=== PATIENT | female | born 1960 | race Caucasian/White ===

== ENCOUNTER → 2016-07-31 | Outpatient (CLI) | payer BC ==
[~2016-07-31] MED LIST: ACID1TAB PO; ALPR1T PO; CARV12.53 PO; DIPH1TAB25 PO; FLUO20CA25 PO; FLUO20CA42 PO; FRSM40T PO; FURO40TA4 PO; HYDR-2890 PO; HYDR25TA4 PO; IBUP200C PO; IRON18TA PO; KCL20TCR PO; LCT30U PO; LEVO500T69 PO; LORA1TAB PO; MILK1CAP2 PO; MODA100T27 PO; MULT-974 PO; NFBIOT1000 PO; NITR-65 PO; ONDA-42 PO; OXYM5TAB PO; PHEN-640 PO; RIFA550T PO; Rifaximin PO; SPIR50TA2 PO; SULF1TAB35 PO; Spironolactone PO; TRAM-42 PO
--- OUTSIDE RECORDS SUMMARY | 2016-07-31 06:43 | XMS REPORT | Continuity of Care Document ---
Author Author [facility] Organization [facility] Address Unknown Phone Unavailable Care Team Providers Care Telegraphic Typewriter Installer Name Role Phone Awais Yost III PCP [phone] Source Comments Some departments are not documenting in the electronic medical record. If you do not see the information that you expected, contact Release of Information in the Health Information Management department at [phone] for further assistance in locating additional records.[facility] Active Allergies and Adverse Reactions Allergen Noted Date Severity Reactions Comments Erythromycin 03/17/2015 High ANAPHYLAXIS Current Medications Prescription Sig. Disp. Refills Start End Date Status Date fluoxetine(+) (SARAFEM) Take 20 mg by mouth Active 20 mg tablet daily. Biotin 2,500 mcg tab Take 5,000 mcg by mouth. Active Milk Thistle 500 mg cap Take 1,000 mg by mouth. Active OXYCODONE HCL/ASPIRIN Take by mouth. Active (PERCODAN PO) furosemide (LASIX) 20 mg Take 1 Tab by mouth 30 Tab 0 11/16/19 Active tablet daily. Please make an [address] Ruano for additional refills. oxymorphone(+) (OPANA) 5 Take 5 mg by mouth daily Active mg tablet varenicline (CHANTIX Take 0.5mg by mouth daily 53 Tab 0 07/06/19 Active STARTING MONTH BOX) 0.5 for 3 days, then increase 17 mg (11)- 1 mg (42) tablet to 0.5mg by mouth twice daily for 4 days, then increase to 1mg by mouth twice daily rifAXIMin (XIFAXAN) 550 Take 1 Tab by mouth twice 60 Tab 5 07/06/19 Active mg tablet daily. 17 spironolactone Take 1 Tab by mouth 90 Tab 1 07/06/19 Active (ALDACTONE) 50 mg tablet daily. 17 carvedilol (COREG) 12.5 Take 1 Tab by mouth at 90 Tab 1 07/06/19 Active mg tablet bedtime daily. 17 LACTULOSE (GENERLAC PO) Take by mouth. 07/06/19 Discontin 17 ued rifaximin (XIFAXAN) 550 Take 1 Tab by mouth twice 60 Tab 5 09/22/19 07/06/19 Discontin mg tab daily. 16 17 ued carvedilol (COREG) 12.5 Take 1 Tab by mouth twice 180 Tab 3 02/09/20 07/06/19 Discontin mg tablet daily with meals. 16 17 ued spironolactone Take 1 Tab by mouth 30 Tab 1 03/01/20 07/06/19 Discontin (ALDACTONE) 50 mg tablet daily. 16 17 ued carvedilol (COREG) 12.5 Take 1 Tab by mouth at 180 Tab 3 07/06/19 Discontin mg tablet bedtime daily. 17 17 ued Active Problems Not on file Most Recent Encounters Date Type Specialty Providers Description 08/24/2016 Hospital Juanjose Ruano MD Esophageal varices Encounter determined by endoscopy (HCC) 07/17/2016 Documentation Transplant Surgery Nohemy Camacho 07/17/2016 Orders Only Transplant Surgery Briana Felder RN Urge incontinence of urine (Primary Dx) 07/06/2016 Office Visit Transplant Surgery Juanjose Ruano MD Alcoholic cirrhosis of liver with ascites (HCC) (Primary Dx); Alcoholic cirrhosis of liver without ascites (HCC) 07/06/2016 Prep for Case Transplant Surgery Briana Felder RN 07/06/2016 Prep for Case Transplant Surgery Briana Felder RN 07/06/2016 Telephone Transplant Surgery Nohemy Camacho Appointment Question 07/05/2016 Telephone Transplant Surgery Nohemy Camacho Patient Reminder Call 07/05/2016 Scan Only Transplant Surgery Juanjose Ruano MD 06/27/2016 Telephone Transplant Surgery Juanjose Ruano MD Other - appointment 06/27/2016 Telephone Hepatology Juanjose Ruano MD Appointment 06/09/2016 Orders Only Transplant Surgery Nika Shields RN Periodic health assessment, general screening, adult (Primary Dx) 06/09/2016 Orders Only Transplant Surgery Tila Islas Alcoholic cirrhosis of liver with ascites (HCC); Periodic health assessment, general screening, adult Social History Tobacco Use Types Packs/Day Years Used Date Current Every Day Smoker Cigarettes 0.5 7 Tobacco Cessation: Ready to Quit: No; Counseling Given: No Comments: Alcohol Use Drinks/Week oz/Week Comments No Last Filed Vital Signs Vital Sign Reading Time Taken Blood Pressure 114/68 07/06/2016 1:14 PM 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 Pulse 60 07/06/2016 1:14 PM 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 Temperature 36.7 C (98 F) 07/06/2016 1:14 PM 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 Respiratory Rate 12 07/06/2016 1:14 PM 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 Height 1.651 m (5' 5") 07/06/2016 1:14 PM 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 Weight 54.885 kg (121 lb) 07/06/2016 1:14 PM 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 Body Mass Index 20.14 07/06/2016 1:14 PM 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 Oxygen Saturation 95% 07/06/2016 1:14 PM 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 Plan of Care Date Type Specialty Providers Description 08/24/2016 Surgery Milo Golden MD ESOPHAGOGASTRODUODENOSCOP [address] [place] [address] [phone] (Fax) 01/04/2017 Appointment Radiology Juanjose Ruano MD [address] [place] [address] [phone] (Fax) 01/04/2017 Appointment Transplant Surgery Juanjose Ruano MD [address] [place] [address] [phone] (Fax) Health Maintenance Due Date Last Done Comments Hepatitis C Screening 1959 Physical (Comprehensive) 1966 Exam Pertussis Vaccine 1970 Tetanus Vaccine 1976 Cervical Cancer Screening 1980 Breast Cancer Screening 1999 Colorectal Cancer 2009 Screening Influenza Vaccine 02/17/2016 Results from Last 3 Months LIPID PROFILE (06/08/2016 10:55 AM) Component Value Range Cholesterol 135 130-200 mg/dL HDL 64.0 30.0-90.0 mg/dl Triglycerides 46 35-200 LDL 62 60-130 mg/dL Cholesterol/HDL Ratio 2.1 0.0-4.4 Specimen Blood Narrative Outside Lab Verified by Tila Islas on 06/09/2016. ALPHA FETO PROTEIN (AFP) (06/08/2016 10:55 AM) Component Value Range Alpha Feto Protein 2.3 0.0-8.7 Specimen Blood Narrative Outside Lab Verified by Tila Islas on 06/09/2016. PROTIME INR (PT) (06/08/2016 10:55 AM) Component Value Range Protime 15.9 (H) 11.3-14.1 INR 1.3 (H) 0.9-1.1 Specimen Blood Narrative Outside Lab Verified by Tila Islas on 06/09/2016. COMPREHENSIVE METABOLIC PANEL (06/08/2016 10:55 AM) Component Value Range Sodium 138 132-145 mEq/L Potassium 4.0 3.5-5.5 mEq/L Chloride 106 95-110 mEq/L CO2 26.0 24.0-34.0 Anion Gap 10 6-14 Glucose 110 60-125 mg/dL Creatinine 0.7 0.6-1.5 mg/dL eGFR Non 95 >59 ml/min/1.73m2 Blood Urea Nitrogen 12 5-25 mg/dL Calcium 9.6 8.5-10.8 Alk Phosphatase 99 30-115 U/L AST (SGOT) 28 0-40 U/L ALT (SGPT) 19 0-50 U/L Total Bilirubin 1.1 0.1-1.4 mg/dL Albumin 4.3 3.5-5.5 g/dL Total Protein 7.6 6.0-8.0 g/dL Specimen Blood Narrative Outside Lab Verified by Tila Islas on 06/09/2016. CBC AND DIFF (06/08/2016 10:55 AM) Component Value Range White Blood Cells 4.67 (L) 5.00-10.00 RBC 4.37 3.60-5.00 M/ul Hemoglobin 14.0 13.0-15.0 Hematocrit 41.8 36.0-46.0 % MCV 95.7 80.0-97.0 MCH 32.0 (H) 27.0-31.0 pg MCHC 33.5 32.0-36.0 pg RDW 14.5 11.6-14.8 % Platelet Count 109 (L) 150-400 Neutrophils 58.4 37.0-80.0 % Lymphocytes 21.0 10.0-50.0 % Monocytes 16.5 (H) 0.0-12.0 Eosinophil 3.2 0.0-7.0 % Basophil 0.9 0.0-2.5 Absolute Neutrophil Count 2.79 2.00-6.90 Absolute Lymph Count 0.98 0.60-3.40 K/ul Absolute Monocyte Count 0.8 0.0-0.9 ul Absolute Eosinophil Count 0.2 0.0-0.7 Absolute Basophil Count 0.0 0.0-0.2 Specimen Blood Narrative Outside Lab Verified by Tila Islas on 06/09/2016.
--- NOTE | 2016-07-31 11:51 | Diagnostic Imaging Report ---
Ultrasound of the liver. INDICATION: Liver cirrhosis. FINDINGS: The liver is hyperechoic which could be related to fatty infiltration or hepatitis. No focal mass identified. The gallbladder demonstrates numerous tiny echogenic material seen within the gallbladder. There is very minimal shadowing gas seen. These were seen to be mobile during the exam. This could be related to sludge or non-shadowing stones. The gallbladder wall is normal in thickness. No pericholecystic fluid. Sonographic Conway sign is reportedly negative. The CBD is mildly dilated at 7 mm in caliber. No intrahepatic biliary dilatation seen. The visualized portions of the pancreas appear unremarkable. The right kidney is 11.5 cm in length with no hydronephrosis or focal lesion. No ascites or fluid collection is seen. Color Doppler demonstrates hepatopetal flow in the portal vein. IMPRESSION: 1. The gallbladder demonstrates numerous tiny nonshadowing stones or sludge. 2. Mildly dilated common bile duct. Dictated by: Dictated on workstation # [id number]
== END ==
LOC: RAD 06:40
PROVIDERS: ATTEND Internal Medicine
DX: K74.60 Unspecified cirrhosis of liver (principal)
CPT/HCPCS: 76705

== ENCOUNTER → 2017-01-11 | Outpatient (CLI) | payer BC ==
[~2017-01-11] VITALS: Ht 157.5 cm; Wt 49.9 kg
[~2017-01-11] MED LIST changes: +COSYNTROPIN 0.25 MG/ML (CORTROSYN) VIAL IV ONE; +COSYNTROPIN 0.25 MG/ML (CORTROSYN) VIAL ONE
[2017-01-11 09:41] VITALS: BP 107/63
== END ==
LOC: SDC 01-10 13:53
PROVIDERS: ATTEND Internal Medicine
DX: E27.8 Other specified disorders of adrenal gland (principal)
CPT/HCPCS: 36415; 82533; 96372

== ENCOUNTER → 2017-03-08 | Outpatient (CLI) | payer BC ==
[~2017-03-08] MED LIST changes: -COSYNTROPIN 0.25 MG/ML (CORTROSYN) VIAL IV ONE; -COSYNTROPIN 0.25 MG/ML (CORTROSYN) VIAL ONE
[2017-03-08 11:24] LABS: BLOOD UREA NITROGEN 13 MG/DL (7-18); BUN/CREATININE RATIO 19; CREATININE SERUM 0.69 MG/DL (0.60-1.30); GFR ESTIMATED > 60
== END ==
LOC: RAD 10:28
PROVIDERS: ATTEND Internal Medicine
DX: K70.31 Alcoholic cirrhosis of liver with ascites (principal)
CPT/HCPCS: 36415; 82565; 84520

== ENCOUNTER → 2017-03-12 | Outpatient (CLI) | payer BC ==
[~2017-03-12] MED LIST changes: +GADOXETATE 2.5 MMOL/10 ML (EOVIST) IV ONE
--- NOTE | 2017-03-12 10:57 | Diagnostic Imaging Report ---
PROCEDURE: MR imaging abdomen with and without contrast. TECHNIQUE: Multiplanar, multisequence MR imaging of the abdomen was performed with and without contrast. INDICATION: Liver cirrhosis. 6 mL of Eovist is administered intravenously. FINDINGS: The liver contour is nodular compatible with cirrhosis. There is no ascites. The portal vein is patent. There is heterogeneous region in the parenchyma of the right hepatic lobe with heterogenous enhancement on the hepatocellular phase of contrast at 20 minutes. This is not associated with significant heterogeneity or a defined mass when evaluated on earlier phase postcontrast images. Heterogeneity is seen on T1 and T2-weighted images. This could be related to the cirrhotic changes with no definitive underlying mass. An infiltrative type mass is not entirely ruled out. The spleen is enlarged measuring 13.4 cm in AP dimension, 5.5 cm transversely and 13.2 cm craniocaudally. No significant dilatation of the biliary tree. The pancreas, and the adrenal glands appear unremarkable. The kidneys demonstrate no hydronephrosis. The abdominal aorta is normal in caliber. There are prominent gastric varices projecting into the gastric fundus seen. IMPRESSION: 1. There is heterogeneity in the right hepatic lobe which may relate to cirrhosis with no discrete mass. An infiltrative underlying neoplasm is not entirely ruled out. Correlate with AFP levels, and with followup CT scan or MRI with liver mass protocol in 3 months. 2. Manifestations of liver cirrhosis, splenomegaly, and prominent gastric varices are seen. No ascites. Dictated by: Dictated on workstation # [id number]
== END ==
LOC: RAD 08:19
PROVIDERS: ATTEND Internal Medicine
DX: K70.30 Alcoholic cirrhosis of liver without ascites (principal)
CPT/HCPCS: 74183

== ENCOUNTER 2017-05-18 06:30 | Emergency (ER) | payer BC ==
[~2017-05-18] VITALS: Ht 157.5 cm; Wt 53.5 kg
[~2017-05-18 06:30] MED LIST changes: -GADOXETATE 2.5 MMOL/10 ML (EOVIST) IV ONE
[2017-05-18] MEDS ORDERED: OXYM10TA (06:55)
[2017-05-18] MEDS ORDERED: FAMC500T17 (06:55)
--- NOTE | 2017-05-18 07:13 | ED Integumentary General ---
General Chief Complaint: Skin/Wound Problems Stated Complaint: SHINGLES Nursing Triage Note: PATIENT STATES THAT SHE WAS DIAGNOSED WITH SHINGLES ON 05/16/17. SINCE THEN THE PAIN HAS GOTTEN WORSE. Source: patient Exam Limitations: no limitations History of Present Illness Time seen by provider: 06:50 Initial Comments Here with report of pain from shingles outbreak on her left hip that goes from her spine around to the midline anteriorly. She is on antiviral medication for this. The pain was getting a little worse so she use capsaicin over the top and this caused more burning. This is settled down now and actually she is feeling a little better but was very concerned about infection. She does have weeping blisters. She is covering this with the Tylenol. She has taken some Tylenol for this and this has helped some. She does have significant liver disease although this has apparently improved of recent. Timing/Duration: getting worse Severity: moderate Location: torso Associated Symptoms: blisters, change in skin texture, edema, rash Allergies and Home Medications Allergies Coded Allergies: Penicillins (Verified Allergy, Unknown, HAS RECEIVED ROCEPHIN IN THE PAST , 06/03/15) erythromycin base (Unverified Allergy, Unknown, 06/03/15) Home Medications Biotin 1,000 Mcg Tablet, 1,000 MCG PO DAILY, (Reported) Carvedilol 12.5 Mg Tablet, 12.5 MG PO BID, (Reported) Diphenoxylate HCl/Atropine 1 Each Tablet, 1 EA PO QID PRN for DIARRHEA for 6 Days Prescribed by: ARIADNA MCMILLAN on 06/06/15 1051 Famciclovir 500 Mg Tablet, (Reported) Fluoxetine HCl 20 Mg Capsule, 20 MG PO DAILY, (Reported) Furosemide 40 Mg Tablet, 20 MG PO DAILY, (Reported) TAKES 1/2 (40MG) TABLET L. Acidophilus/Bulgaricus 1 Each Tablet, 1 TAB.CHEW PO AC for 10 Days Prescribed by: ARIADNA MCMILLAN on 06/06/15 1051 Milk Thistle Seed Extract 140 Mg Capsule, 140 MG PO BID, (Reported) Modafinil 100 Mg Tablet, 100 MG PO BID, (Reported) Multivitamin 1 Each Tablet, 1 TAB PO DAILY, (Reported) Nitrofurantoin Monohyd/M-Cryst 100 Mg Capsule, 100 MG PO BID, #20 Prescribed by: ANN THORNTON on 7/15/16 2339 Oxymorphone HCl 5 Mg Tab.er.12h, 5 MG PO BID PRN for PAIN, (Reported) Oxymorphone HCl 10 Mg Tablet, (Reported) Phenazopyridine HCl 200 Mg Tablet, 1 TAB PO TID, #15 Prescribed by: ANN THORNTON on 12/31/15 2339 Rifaximin 550 Mg Tablet, 1,100 MG PO DAILY, (Reported) TAKES 2 (550MG) TABLETS Spironolactone 50 Mg Tablet, 25 MG PO DAILY, (Reported) TAKES 1/2 (50MG) TABLET Sulfamethoxazole/Trimethoprim 1 Each Tablet, 1 EA PO BID WITH MEALS for 10 Days Prescribed by: ARIADNA MCMILLAN on 06/06/15 1051 Constitutional: see HPI, No chills, No fever Respiratory: no symptoms reported Cardiovascular: no symptoms reported Skin: see HPI, change in color, lesions, rash Psychiatric/Neurological: No Symptoms Reported Past Tntxnoa-Hebosv-Iukuyl Hx Patient Social History Alcohol Use: Past History Recreational Drug Use: No Smoking Status: Current Everyday Smoker Type Used: Cigarettes Recent Foreign Travel: No Contact w/Someone Who Travel: No Recent Infectious Disease Expo: Yes (PATIENT HAS BEEN DIAGNOSED WITH SHINGLES) Recent Hopitalizations: No Physical Abuse: No Sexual Abuse: No Mistreated: No Fear: No Immunizations Up To Date Tetanus Booster (TDap): Unknown PED Vaccines UTD: No Date of Pneumonia Vaccine: Aug 03, 2014 Date of Influenza Vaccine: Aug 03, 2014 Seasonal Allergies Seasonal Allergies: No Surgeries History of Surgeries: Yes (D&C, WISDOM TEETH, COLONOSCOPY; PARACENTESIS X 2) Respiratory History of Respiratory Disorde: No Currently Using CPAP: No Currently Using BIPAP: No Cardiovascular History of Cardiac Disorders: Yes (TAKE CARVEDILOL FOR LIVER, NUCLEAR STRESS TEST-2005) Neurological History of Neurological Disord: No Reproductive System Hx Reproductive Disorders: Yes (ENDOMETRIAL THICKENING) Sexually Transmitted Disease: No HIV/AIDS: No Female Reproductive Disorders: Denies 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 Genitourinary Genitourinary Disorders: Renal Failure Gastrointestinal History of Gastrointestinal Di: Yes (PARACENTESIS X2, JUL 2014; SALMONELLA 2014) Gastrointestinal Disorders: Liver Disease/Jaundice, Diverticulosis, Cirrhosis Musculoskeletal History of Musculoskeletal Dis: Yes (HANDS) Musculoskeletal Disorders: Arthritis Endocrine History of Endocrine Disorders: No HEENT Loss of Vision: Bilateral Hearing Impairment: Denies Cancer History of Cancer: No Psychosocial History of Psychiatric Problem: Yes (HX ALCOHOLISM) Behavioral Health Disorders: Anxiety, Depression Suicide Risk Score: 0 Integumentary History of Skin or Integumenta: No Blood Transfusions History of Blood Disorders: No Adverse Reaction to a Blood Tr: No Reviewed Nursing Assessment Reviewed/Agree w Nursing PMH: Yes Family Medical History Family Medial History: Cardiovascular disease 19 MOTHER Hypertension 19 MOTHER Physical Exam Vital Signs Vital Sign - Last 12Hours 05/18/17 06:40 Temp 98.3 Pulse 74 Resp 20 B/P (MAP) 138/86 (103) Pulse Ox 97 O2 Delivery Room Air Capillary Refill : Less Than 3 Seconds General Appearance: WD/WN, no apparent distress Cardiovascular: regular rate, rhythm, no murmur Respiratory: lungs clear, normal breath sounds Skin: rash Skin Problem Location: torso Skin Problem Character: drainage, erythema, lesion, papules, vesicular, other ( has shingles rash to the left hip area starting at the spine and moving around to the front midline. Several weeping sores noted. Multiple vesicular lesions in various stages.) Progress/Results/Core Measures Results/Orders Vital Signs/I&O Vital Sign - Last 12Hours 05/18/17 06:40 Temp 98.3 Pulse 74 Resp 20 B/P (MAP) 138/86 (103) Pulse Ox 97 O2 Delivery Room Air Blood Pressure Mean: 103 Progress Note : Progress Note Seen and evaluated. Pain is improved now with time. Instructed to follow-up with her primary care Dr. teran for additional pain control as needed as patient has underlying liver disease which complicates her treatment. Overall patient is doing better. Discharged home with return precautions. Patient verbalize understanding instructions and agreement with plan. Departure Impression Impression: Primary Impression: Herpes zoster Qualified Codes: B02.9 - Zoster without complications Disposition: 01 HOME, SELF-CARE Condition: Stable Departure-Patient Inst. Decision time for Depature: 07:14 Referrals: LIVIA IGLESIAS DO (PCP/Family) Primary Care Physician Patient Instructions: Shingles (DC) Add. Discharge Instructions: All discharge instructions reviewed with patient and/or family. Voiced understanding. Continue home medications as directed. Follow-up with Dr. Priyank teran for recheck and further evaluation and to discuss pain medication treatment including the capsaicin. Return for worse pain, fever, vomiting, weakness, breathing problems or other concerns as needed. Copy Copies To 1: LIVIA IGLESIAS TIMOTHY D MD May 18, 2017 07:13
[2017-05-18 07:24] VITALS: BP 138/86
== END 2017-05-18 07:23 | disposition home or self-care (01) ==
LOC: EDUNIT# 06:30 → ER 06:32
DX: B02.9 Zoster without complications (principal); M19.041 Primary osteoarthritis, right hand; M19.042 Primary osteoarthritis, left hand; F41.9 Anxiety disorder, unspecified; F32.9 Major depressive disorder, single episode, unspecified; F17.210 Nicotine dependence, cigarettes, uncomplicated; Z87.19 Personal history of other diseases of the digestive system; Z82.49 Family history of ischemic heart disease and other diseases of the circulatory system
CPT/HCPCS: 99281

== ENCOUNTER 2018-05-15 14:39 | Outpatient (CLI) | payer BC ==
[~2018-05-15] VITALS: Ht 157.5 cm; Wt 56.7 kg
[~2018-05-15 14:39] MED LIST changes: +FAMC500T17; +OXYM10TA PO; -SPIR50TA2 PO; +SPIR50TA4 PO
[2018-05-15] MEDS ORDERED: FLUO40CA PO (14:42)
== END 2018-05-15 14:44 | disposition home or self-care (01) ==
LOC: PREOP 14:39
PROVIDERS: ATTEND Surgery
DX: Z01.818 Encounter for other preprocedural examination (principal)

== ENCOUNTER 2018-05-17 12:03 | Day surgery (SDC) | payer BC ==
[~2018-05-17] VITALS: Ht 157.5 cm; Wt 56.7 kg
[~2018-05-17 12:03] MED LIST changes: +FLUO40CA PO
[2018-05-17] MEDS ORDERED: LACTATED RINGERS 1,000 ML IV ONE (12:08)
[2018-05-17 12:15] VITALS: BP 109/70
[2018-05-17] MEDS ORDERED: LACTATED RINGERS 1,000 ML IV STA (12:28)
[2018-05-17] MEDS ORDERED: LIDOCAINE JELLY 2% 6 ML SYRINGE MM PRN (12:30)
--- NOTE | 2018-05-17 12:32 | Conscious Sedation/ASA ---
Conscious Sedation Pre-Proced Time 12:30 ASA Score 2 For ASA 3 and 4: Consider anesthesia and medical clearance. Also, for patients with a history of failed moderate sedation consider anesthesia. Airway Lungs Heart ASA score ASA 1: a normal healthy patient ASA 2: a patient with a mild systemic disease (mid diabetes, controlled hypertension, obesity ASA 3: a patient with a severe systemic disease that limits activity (angina , COPD, prior Myocardial infarction) ASA 4: a patient with an incapacitating disease that is a constant threat to life (CHF, renal failure) ASA 5: a moribund patient not expected to survive 24 hrs. (ruptured aneurysm) ASA 6: a declared brain patient whose organs are being harvested. For emergent operations, add the letter E after the classification Mallampati Classification Grade 2 Sedation Plan Analgesia, Amnesia, Plan communicated to team members, Discussed options with patient/fam, Discussed risks with patient/fam The patient is an appropriate candidate to undergo the planned procedure, sedation, and anesthesia. The patient immediately re-assessed prior to indication. ELAINE HUGHES MD May 17, 2018 12:32 pm
--- NOTE | 2018-05-17 12:33 | Progress Note-Pre Operative ---
Pre-Operative Progress Note H&P Reviewed The H&P was reviewed, patient examined and no changes noted. Date Seen by Provider: May 17, 2018 Time Seen by Provider: 12:30 Date H&P Reviewed: May 17, 2018 Time H&P Reviewed: 12:30 Pre-Operative Diagnosis: screening colonoscopy, vaginal lesion ELAINE HUGHES MD May 17, 2018 12:33 pm
[2018-05-17] MEDS ORDERED: morphine INJ 10 MG/ML 1ML (SYR OR VIAL) IV PRN (12:45)
[2018-05-17] MEDS ORDERED: HYDROcodone/APAP 5 MG/325 MG (LORTAB) TAB PO PRN (12:45)
[2018-05-17] MEDS ORDERED: ONDANSETRON 4 MG/2 ML (SDV) Z0FRAN IV PRN (12:45)
[2018-05-17] MEDS ORDERED: ACETAMINOPHEN 325 MG TABLET PO PRN (12:45)
[2018-05-17] MEDS ORDERED: MIDAZOLAM 2 MG/2 ML (VERSED) VIAL ONE ×2 (14:03→14:25)
[2018-05-17] MEDS ORDERED: PROPOFOL INJECTION 50 ML IV ONE (14:04)
[2018-05-17] MEDS ORDERED: fentaNYL INJECTION 100 MCG/2 ML AMP ONE (14:51)
[2018-05-17] MEDS ORDERED: proPOfol 200 MG/20 ML (DIPRIVAN) VIAL IV ONE (15:00)
--- NOTE | 2018-05-17 15:34 | Anesthesia-General Post-Op ---
MAC Patient Condition Mental Status/LOC: Same as Preop Cardiovascular: Satisfactory Nausea/Vomiting: Absent Respiratory: Satisfactory Pain: Controlled Complications: Absent Post Op Complications Complications None Follow Up Care/Instructions Patient Instructions None needed. Anesthesiology Discharge Order Discharge Order Patient is doing well, no complaints, stable vital signs, no apparent adverse anesthesia problems. ELDER LOTT DO May 17, 2018 15:34
[2018-05-17 15:35] VITALS: BP 109/57
--- NOTE | 2018-05-17 15:39 | Progress Note-Post Operative ---
Post-Operative Progess Note Surgeon (s)/Guide Dog Instructor (s) Surgeon ELAINE HUGHES MD Guide Dog Instructor: none Pre-Operative Diagnosis screening colonoscopy, vaginal lesion Post-Operative Diagnosis acute on chronic stage 2-3 ext and int hemorrhoids, moderate sigmoid and descending diverticulosis. Procedure & Operative Findings Date of Procedure 05/17/18 Procedure Performed/Findings pelvic exam, colonoscopy. Anesthesia Type MAC Estimated Blood Loss Estimated blood loss (mL): minimal Specimens/Packing Specimens Removed none ELAINE HUGHES MD May 17, 2018 3:39 pm
--- NOTE | 2018-05-17 15:40 | Discharge Inst-Surgical ---
D/C Lap Instructions-ELLEN Follow Up PRN Activity as tolerated sitz bath QID when hemorrhoidal flare up. High Fiber Diet 25g or more per day Avoid Alcohol, Caffeine, Spicy [place] and Acid foods. Drink 64 fluid oz or more of fluids per day. Symptoms to Report: Fever over 101 degree F, Nausea/Vomiting If any problems/questions: Contact your physician or go to Emergency Room ELAINE HUGHES MD May 17, 2018 3:40 pm
[2018-05-17 16:10] VITALS: BP 112/62
[2018-05-17 16:15] VITALS: BP 112/62
--- NOTE | 2018-05-18 03:31 | OPERATIVE REPORT ---
DATE OF SERVICE: 05/17/2018 ATTENDING PRIMARY CARE PHYSICIAN: Jose Enrique Yost D.O. PREOPERATIVE DIAGNOSES: Rectal bleed, constipation, urethral opening lesion. POSTOPERATIVE DIAGNOSES: Chronic stage II external and internal hemorrhoids with some irritation of the external hemorrhoidal plexus with no active bleeding. There was moderate sigmoid and descending colonic diverticulosis. There was no urethral or vaginal lesions identified. The cervix was identified and appeared to be normal. PROCEDURE: Colonoscopy, pelvic exam under anesthesia. SURGEON: Elaine Hughes M.D. ANESTHESIA: Monitored anesthesia care. ESTIMATED BLOOD LOSS: Minimal. FINDINGS: Normal vagina and urethral opening. Normal cervix. Chronic between stage II and III external and internal hemorrhoids with some mild irritation, most likely secondary to the prep. No bleeding. There was moderate sigmoid and descending colonic diverticulosis. There were no mucosal inflammatory changes to indicate any diverticulitis. The remainder of the colon was normal. There were no polyps or any neoplasms identified. DISPOSITION: The patient tolerated the procedure well. INDICATIONS: The patient is a 58-year-old female known to us. We had initially seen her for abdominal distention and found to have ascites. After further workup, she was found to have liver cirrhosis and symptomatic ascites requiring paracentesis on 2 different occasions in 2013 as well as August 2014. Since September 2013, she reports that she is completely abstain from alcohol. She did undergo an EGD at [facility] and found to have esophageal varices, requiring banding 07/2015. She has had worsening episodes of hemorrhoidal flareups and does report constipation as well as straining upon defecation. She reports that since that time she has seen gynecology and found to have a small lesion adjacent to the urethra; however, is unsure what this lesion was and wanted to have this biopsied if this was identified under monitored anesthesia care. DESCRIPTION OF PROCEDURE: The patient was brought to the endoscopy suite, laid in the left lateral decubitus position. After adequate IV pain and sedating medications and monitored anesthesia care, the patient was placed supine in frog legged. A pelvic examination using a speculum was performed. There was no urethral opening lesion as well as no vaginal lesion. The cervix was identified and appeared to be normal. There were no palpable masses. The patient was then placed in the left lateral decubitus position. A digital rectal examination was performed which revealed chronic stage between stage II and III external and internal hemorrhoids with some mild irritation of the external hemorrhoidal plexus. There was no bleeding identified. Normal sphincter tone was felt and there were no palpable masses. The endoscope was then intubated to the anus and rectum gently insufflated. The endoscope was then advanced to the valves of [place] in the rectum with no polyps or any neoplasms identified. We then proceeded through the sigmoid colon where a moderate sigmoid diverticulosis identified. This extended through the descending colon as well. There were no mucosal inflammatory changes to indicate any active diverticulitis. The endoscope was then advanced through the remainder of the descending, transverse and ascending colon to the cecum. These segments were normal. There were no polyps or any neoplasms identified throughout the colon or rectum. The endoscope was then slowly withdrawn while taking a second look and suctioning of residual air with no additional findings. The patient tolerated the procedure well. We will have her continue with medical management with a high fiber diet with at least 30 grams of fiber per day if not more to promote very soft stools on a daily basis to prevent hemorrhoidal flareups. She is also instructed to do Sitz baths as she does have hemorrhoidal flareups. If she continues to have symptomatic hemorrhoids despite maximal medical therapy then she may benefit from hemorrhoidectomy; however, this time the procedure is not indicated. If she does have recurrence of the lesion near the urethra, we will have her contact us and we will refer her to urology. Job ID: [id number] DocumentID: [id number] Dictated Date: 05/17/2018 15:37:03 Family Mediator Date: 05/18/2018 03:30:57 Dictated By: ELAINE HUGHES MD MTDD
== END 2018-05-17 16:15 | disposition home or self-care (01) ==
LOC: ENDO 12:03
PROVIDERS: ATTEND Surgery
DX: K62.5 Hemorrhage of anus and rectum (principal); K64.1 Second degree hemorrhoids; K57.30 Diverticulosis of large intestine without perforation or abscess without bleeding; K59.00 Constipation, unspecified; N36.9 Urethral disorder, unspecified; K74.60 Unspecified cirrhosis of liver; F41.9 Anxiety disorder, unspecified; F17.210 Nicotine dependence, cigarettes, uncomplicated; Z79.899 Other long term (current) drug therapy

== ENCOUNTER → 2019-12-08 | Outpatient (CLI) | payer BC ==
[~2019-12-08] MED LIST changes: -FAMC500T17; +FAMC500T2; +FLUO20CA46 PO
--- NOTE | 2019-12-08 09:32 | Diagnostic Imaging Report ---
INDICATION: Routine screening. COMPARISON: 02/01/2012. TECHNIQUE: 2D and 3D bilateral screening mammography was performed with CAD. FINDINGS: Both breasts remain heterogeneously dense, limiting the sensitivity of mammography. The parenchymal pattern is stable. No dominant mass or malignant appearing microcalcifications are seen. The axillae are unremarkable. IMPRESSION: No mammographic features suspicious for malignancy are identified. ACR BI-RADS Category 1: Negative. Result letter will be mailed to the patient. Note: At least 10% of breast cancer is not imaged by mammography. Dictated by: Dictated on workstation # [id number]
== END ==
LOC: RAD 07:54
PROVIDERS: ATTEND Internal Medicine
DX: Z12.31 Encounter for screening mammogram for malignant neoplasm of breast (principal)
CPT/HCPCS: 77063; 77067

== ENCOUNTER → 2020-11-03 | Outpatient (CLI) | payer BC | END | disposition home or self-care (01) | LOC: PREOP 06:18 | PROVIDERS: ATTEND Specialist | DX: Z01.818 Encounter for other preprocedural examination (principal) ==

== ENCOUNTER → 2020-12-13 | Outpatient (CLI) | payer BC | END | disposition home or self-care (01) | LOC: PREOP 11-12 06:32 | PROVIDERS: ATTEND Specialist | DX: Z01.818 Encounter for other preprocedural examination (principal) ==

== ENCOUNTER 2021-03-16 05:43 | Outpatient (CLI) | payer BC ==
[~2021-03-16] VITALS: Ht 157.5 cm; Wt 52.3 kg
[~2021-03-16 05:43] MED LIST changes: -SULF1TAB35 PO; +SULF1TAB38 PO
== END 2021-03-16 09:20 ==
LOC: PREOP 05:43
PROVIDERS: ATTEND Specialist
DX: Z01.818 Encounter for other preprocedural examination (principal)

== ENCOUNTER 2021-03-18 10:30 | Day surgery (SDC) | payer BC ==
[~2021-03-18] VITALS: Ht 157.5 cm; Wt 52.3 kg
[2021-03-18] MEDS ORDERED: POVIDONE (BETADINE) OPHTH SOLN 5% 30 ML OP ONE (10:45)
[2021-03-18] MEDS ORDERED: TIMOLOL MALEATE 0.5% 5 ML (TIMOPTIC) BTL OU PRN (10:45)
[2021-03-18] MEDS ORDERED: MOXIFLOXACIN OPHTH SOLN 5 MG/ML 0.3 ML SYRINGE OP ONE (10:45)
[2021-03-18] MEDS ORDERED: LIDOCAINE PF 1% 2 ML VIAL IR PRN (10:45)
[2021-03-18] MEDS: TETRACAINE 0.5% OPHTH SOLN 4 ML BTL (SINGLE DOSE ONLY) OU PRN ×4 (10:55→11:11)
[2021-03-18] MEDS: PHENYLEPHRINE 10% OPHTH (NEO-SYN) 5 ML BTL OU SCH ×3 (11:01→11:11)
[2021-03-18] MEDS: TROPICAMIDE 1% OPH SOLN (MYDRIACYL) 15 ML BTL OP SCH ×3 (11:01→11:11)
[2021-03-18 11:09] VITALS: BP 123/90
--- NOTE | 2021-03-18 11:24 | Ophthalmologist Pre-Op Note ---
Pre-Operative Progress Note H&P Reviewed The H&P was reviewed, patient examined and no changes noted. Date H&P Reviewed: Mar 18, 2021 Time H&P Reviewed: 11:24 Pre-Op Dx Cataract, Left Eye ALMA VU MD Mar 18, 2021 11:24
--- NOTE | 2021-03-18 11:42 | Ophthalmology Operative Report ---
Cataract removal/placement IOL PREOPERATIVE DIAGNOSIS: Cataract Left Eye POSTOPERATIVE DIAGNOSIS: Cataract Left Eye PROCEDURE: Cataract removal and placement of posterior chamber implant, left eye SURGEON: Pierce Vu ANESTHESIA: Topical with sedation COMPLICATIONS: None ESTIMATED BLOOD LOSS: Minimal DESCRIPTION OF PROCEDURE: After proper informed consent was obtained, the patient, a 61 female, was taken to the Operating Room and the left eye was anesthetized with tetracaine. The left eye was then prepped and draped in the usual manner. A wire lid speculum was placed. A paracentesis was made at the left hand position. Preservative free lidocaine was injected into the anterior chamber followed by viscoelastic. A clear corneal incision was made in the temporal position. A capsulorrhexis was preformed and the central nuclear and cortical material were removed. The posterior capsule was polished and an Fox [id number] was placed into the capsular bag. The residual viscoelastic was aspirated and balanced saline solution was injected into the anterior chamber. Moxifloxacin was injected into the anterior chamber. The wound was checked and found to be water tight. The patient tolerated the procedure well without complications. PIERCE VU MD Mar 18, 2021 11:42
[2021-03-18 11:45] VITALS: BP 111/88
[2021-03-18] MEDS ORDERED: acetaZOLAMIDE ER 500 MG CAP (DIAMOX SEQUELS) PO ONE (12:00)
--- NOTE | 2021-03-18 13:57 | Anesthesia-General Post-Op ---
MAC Patient Condition Mental Status/LOC: Same as Preop Cardiovascular: Satisfactory Nausea/Vomiting: Absent Respiratory: Satisfactory Pain: Controlled Complications: Absent Post Op Complications Complications None Follow Up Care/Instructions Patient Instructions None needed. Anesthesiology Discharge Order Discharge Order Patient is doing well, no complaints, stable vital signs, no apparent adverse anesthesia problems. No complications reported per nursing. YOSELIN REEDER CRNA Mar 18, 2021 13:57
== END 2021-03-18 11:55 ==
LOC: SDC 10:30
PROVIDERS: ATTEND Specialist
DX: H25.12 Age-related nuclear cataract, left eye (principal); F32.9 Major depressive disorder, single episode, unspecified; M19.90 Unspecified osteoarthritis, unspecified site; Z79.899 Other long term (current) drug therapy
CPT/HCPCS: 66984; V2632

== ENCOUNTER 2021-04-01 07:03 | Outpatient (CLI) | payer BC ==
[~2021-04-01] VITALS: Ht 157.5 cm; Wt 52.3 kg
== END 2021-04-06 15:24 | disposition home or self-care (01) ==
LOC: PREOP 07:03
PROVIDERS: ATTEND Specialist
DX: Z01.818 Encounter for other preprocedural examination (principal)

== ENCOUNTER 2021-04-08 09:46 | Day surgery (SDC) | payer BC ==
[~2021-04-08] VITALS: Ht 157.5 cm; Wt 52.3 kg
[2021-04-08] MEDS: TETRACAINE 0.5% OPHTH SOLN 4 ML BTL (SINGLE DOSE ONLY) OU PRN ×4 (09:56→10:14)
[2021-04-08] MEDS ORDERED: LIDOCAINE PF 1% 2 ML VIAL IR PRN (10:00)
[2021-04-08] MEDS ORDERED: MOXIFLOXACIN OPHTH SOLN 5 MG/ML 0.3 ML SYRINGE OP ONE (10:00)
[2021-04-08] MEDS ORDERED: TIMOLOL MALEATE 0.5% 5 ML (TIMOPTIC) BTL OU PRN (10:00)
[2021-04-08] MEDS ORDERED: POVIDONE (BETADINE) OPHTH SOLN 5% 30 ML OP ONE (10:00)
[2021-04-08] MEDS: TROPICAMIDE 1% OPH SOLN (MYDRIACYL) 15 ML BTL OP SCH ×3 (10:03→10:14)
[2021-04-08] MEDS: PHENYLEPHRINE 10% OPHTH (NEO-SYN) 5 ML BTL OU SCH ×3 (10:03→10:14)
[2021-04-08 10:12] VITALS: BP 106/78
--- NOTE | 2021-04-08 10:26 | Ophthalmologist Pre-Op Note ---
Pre-Operative Progress Note H&P Reviewed The H&P was reviewed, patient examined and no changes noted. Date H&P Reviewed: Apr 08, 2021 Time H&P Reviewed: 10:25 Pre-Op Dx Cataract, Right Eye ALMA VU MD Apr 08, 2021 10:26
[2021-04-08] MEDS ORDERED: MIDAZOLAM 2 MG/2 ML (VERSED) VIAL ONE (10:31)
--- NOTE | 2021-04-08 10:47 | Ophthalmology Operative Report ---
Cataract removal/placement IOL PREOPERATIVE DIAGNOSIS: Cataract Right Eye POSTOPERATIVE DIAGNOSIS: Cataract Right Eye PROCEDURE: Cataract removal and placement of posterior chamber implant, right eye SURGEON: Pierce Vu ANESTHESIA: Topical with sedation COMPLICATIONS: None ESTIMATED BLOOD LOSS: Minimal DESCRIPTION OF PROCEDURE: After proper informed consent was obtained, the patient, a 61 female, was taken to the Operating Room and the right eye was anesthetized with tetracaine. The right eye was then prepped and draped in the usual manner. A wire lid speculum was placed. A paracentesis was made at the left hand position. Preservative free lidocaine was injected into the anterior chamber followed by viscoelastic. A clear corneal incision was made in the temporal position. A capsulorrhexis was preformed and the central nuclear and cortical material were removed. The posterior capsule was polished and Fox [id number] IOL was placed into the capsular bag. The residual viscoelastic was aspirated and balanced saline solution was injected into the anterior chamber. Moxifloxacin was injected into the anterior chamber. The wound was checked and found to be water tight. The patient tolerated the procedure well without complications. PIERCE VU MD Apr 08, 2021 10:47
[2021-04-08 10:48] VITALS: BP 119/72
[2021-04-08] MEDS ORDERED: acetaZOLAMIDE ER 500 MG CAP (DIAMOX SEQUELS) PO ONE (11:30)
--- NOTE | 2021-04-08 11:50 | Anesthesia-General Post-Op ---
MAC Patient Condition Mental Status/LOC: Same as Preop Cardiovascular: Satisfactory Nausea/Vomiting: Absent Respiratory: Satisfactory Pain: Controlled Complications: Absent Post Op Complications Complications None Follow Up Care/Instructions Patient Instructions None needed. Anesthesiology Discharge Order Discharge Order Patient is doing well, no complaints, stable vital signs, no apparent adverse anesthesia problems. ELDER LOTT DO Apr 08, 2021 11:49
== END 2021-04-08 10:58 ==
LOC: SDC 09:46
PROVIDERS: ATTEND Specialist
DX: H25.811 Combined forms of age-related cataract, right eye (principal); M19.90 Unspecified osteoarthritis, unspecified site; F32.9 Major depressive disorder, single episode, unspecified; Z79.899 Other long term (current) drug therapy; Z80.3 Family history of malignant neoplasm of breast; Z80.42 Family history of malignant neoplasm of prostate
CPT/HCPCS: 66984; V2632

== ENCOUNTER 2021-12-04 15:00 | Emergency (ER) | payer BC ==
[~2021-12-04] VITALS: Ht 157 cm; Wt 49.8 kg
[~2021-12-04 15:00] MED LIST changes: -FLUO20CA46 PO; +FLUO20CA48 PO
--- NOTE | 2021-12-04 15:53 | ED Integumentary General ---
General Chief Complaint: Skin/Wound Problems Stated Complaint: RIGHT HAND PAIN/SWELLING Nursing Triage Note: PT PRESENTS TO ED VIA EMS FROM HOME WITH COMPLAINTS OF WOUND ON TOP OF R HAND X 2 WEEKS. REPORTS IT STARTED SWELLING AND DRAINING SUNDAY. PT STATES SUNDAY SHE WAS SEEN AT URGENT CARE AND PLACED ON BACTRIM. REPORTS NO IMPROVEMENT. Source: patient Exam Limitations: no limitations History of Present Illness Date Seen by Provider: Dec 04, 2021 Time Seen by Provider: 15:48 Initial Comments Patient is a 61-year-old female with a history of depression, chronic liver disease/cirrhosis who presents to the emergency department today with a chief complaint of right ring finger pain, swelling, redness. She had a wound on the dorsum of her right ring finger about 2 weeks ago that she thinks she must of scratched. She states it just has not healed correctly and over the last several days she has noticed increased redness, swelling and the streaking. She went to urgent care on Sunday and was prescribed Bactrim. She has taken 48 hours +1 dose of the Bactrim and states that the infection seems to be worsening. She is not a diabetic. She is not on any immunosuppressive therapy. The pain is excruciating. She does have a history of chronic pain and is on Opana. No reported fevers or chills. She is not short of breath. She is not nauseous. All other review of systems reviewed and negative except as stated. Timing/Duration: getting worse, other Severity: severe Location: extremities (Right ring finger) Possible Cause: other (Wound) Associated Symptoms: edema, swelling/mass/lumps (Right ring finger) Allergies and Home Medications Allergies Coded Allergies: erythromycin base (Unverified Allergy, Unknown, 06/03/15) Patient Home Medication List Home Medication List Reviewed: Yes Fluoxetine HCl (Fluoxetine HCl) 40 Mg Capsule, 40 MG PO DAILY, (Reported) Entered as Reported by: AUGUSTO BOGGS on 05/15/18 1442 Furosemide (Furosemide) 40 Mg Tablet, 20 MG PO DAILY, (Reported) Entered as Reported by: JEFFREY MCKEON on 06/04/15 0848 Multivitamin (Multi-Vitamin Daily) 1 Each Tablet, 1 TAB PO DAILY, (Reported) Entered as Reported by: BRANDON BONE on 02/10/15 1450 Oxymorphone HCl (Oxymorphone HCl) 10 Mg Tablet, 10 MG PO BID, (Reported) Entered as Reported by: JOLEEN HERNANDEZ on 05/18/17 0655 Rifaximin (Xifaxan) 550 Mg Tablet, 550 MG PO BID, (Reported) Entered as Reported by: JEFFREY MCKEON on 06/04/15 0840 Review of Systems Review of Systems Constitutional: see HPI EENTM: no symptoms reported Respiratory: no symptoms reported Cardiovascular: no symptoms reported Gastrointestinal: no symptoms reported Genitourinary: no symptoms reported Musculoskeletal: joint pain (Right ring finger) Skin: rash (Redness, wound, swelling) Psychiatric/Neurological: No Symptoms Reported All Other Systems Reviewed Negative Unless Noted: Yes Past Lpamcid-Hkalcc-Rslmdd Hx Patient Social History Tobacco Use?: No Use of E-Cig and/or Vaping dev: Yes E-Cig or Vaping type used: Nicotine Use of E-Cig and/or Vaping Olaf: Current Everyday User Substance use?: No Alcohol Use?: No Pt feels they are or have been: No Immunizations Up To Date Tetanus Booster (TDap): Unknown PED Vaccines UTD: No Seasonal Allergies Seasonal Allergies: Yes Past Medical History Surgery/Hospitalization HX: PMH: CIRRHOSIS OF THE LIVER, DEPRESSION Surgeries: Yes (D&C, WISDOM TEETH, COLONOSCOPY; PARACENTESIS X 2) Respiratory: No Currently Using CPAP: No Currently Using BIPAP: No Cardiac: Yes (TAKE CARVEDILOL FOR LIVER, NUCLEAR STRESS TEST-2004) Neurological: No Reproductive Disorders: No Female Reproductive Disorders: Denies 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 History: Menopausal Sexually Transmitted Disease: No HIV/AIDS: No Renal Failure Gastrointestinal: Yes (PARACENTESIS X2, JUL 2014; SALMONELLA 05/2015) Liver Disease/Jaundice, Diverticulosis, Cirrhosis Musculoskeletal: Yes (HANDS) Arthritis Endocrine: No Loss of Vision: Bilateral Hearing Impairment: Denies Cancer: No Melanoma What Type of Treatment Did You: Surgical Intervention Psychosocial: Yes (HX ALCOHOLISM) Anxiety, Depression Integumentary: No Blood Disorders: No Adverse Reaction/Blood Tranf: No Family Medical History Cardiovascular disease 19 MOTHER Hypertension 19 MOTHER Physical Exam Vital Signs Vital Signs - First Documented 12/04/21 15:07 Temp 37.0 Pulse 75 Resp 16 B/P (MAP) 149/81 (103) Pulse Ox 95 Capillary Refill : Less Than 3 Seconds General Appearance: WD/WN, mild distress (Due to pain) Cardiovascular: regular rate, rhythm Respiratory: lungs clear, normal breath sounds, no respiratory distress, no accessory muscle use Extremities: other (Right hand shows swelling over the dorsum of the hand along the medial aspect from the third metacarpal medially to the fifth metacarpal, swelling extends down the fourth finger of the right hand to the distal interphalangeal joint. She has redness and purple discoloration primarily over the proximal phalanx of the right ring finger. There is a wound over the metacarpophalangeal joint of the fourth digit. This is not actively draining. Exquisitely tender to the touch. Pain along the volar sheath, pain with passive extension, held in flexion, and basically a sausage digit all consistent with flexor tenosynovitis) Neurologic/Psychiatric: alert, normal mood/affect, oriented x 3 Skin: normal color, warm/dry, other (As above) Progress/Results/Core Measures Results/Orders Lab Results Laboratory Tests Test 12/04/21 15:20 12/04/21 16:22 Range/Units White Blood Count 4.6 4.3-11.0 10^3/uL Red Blood Count 4.36 3.80-5.11 10^6/uL Hemoglobin 12.5 11.5-16.0 g/dL Hematocrit 39 35-52 % Mean Corpuscular Volume 89 80-99 fL Mean Corpuscular Hemoglobin 29 25-34 pg Mean Corpuscular Hemoglobin Concent 32 32-36 g/dL Red Cell Distribution Width 13.5 10.0-14.5 % Platelet Count 93 L 130-400 10^3/uL Mean Platelet Volume 11.6 9.0-12.2 fL Immature Granulocyte % (Auto) 0 % Neutrophils (%) (Auto) 73 42-75 % Lymphocytes (%) (Auto) 12 12-44 % Monocytes (%) (Auto) 11 0-12 % Eosinophils (%) (Auto) 3 0-10 % Basophils (%) (Auto) 1 0-10 % Neutrophils # (Auto) 3.4 1.8-7.8 10^3/uL Lymphocytes # (Auto) 0.5 L 1.0-4.0 10^3/uL Monocytes # (Auto) 0.5 0.0-1.0 10^3/uL Eosinophils # (Auto) 0.1 0.0-0.3 10^3/uL Basophils # (Auto) 0.0 0.0-0.1 10^3/uL Immature Granulocyte # (Auto) 0.0 0.0-0.1 10^3/uL Percent Immature Platelet Fraction 7.1 0.0-7.6 % Prothrombin Time 14.6 12.2-14.7 SEC INR Comment 1.1 0.8-1.4 Activated Partial Thromboplast Time 33 24-35 SEC Sodium Level 137 135-145 MMOL/L Potassium Level 3.7 3.6-5.0 MMOL/L Chloride Level 103 98-107 MMOL/L Carbon Dioxide Level 23 21-32 MMOL/L Anion Gap 11 5-14 MMOL/L Blood Urea Nitrogen 9 7-18 MG/DL Creatinine 0.78 0.60-1.30 MG/DL Estimat Glomerular Filtration Rate 86 BUN/Creatinine Ratio 12 Glucose Level 97 70-105 MG/DL Lactic Acid Level 0.92 0.50-2.00 MMOL/L Calcium Level 9.2 8.5-10.1 MG/DL Corrected Calcium 9.1 8.5-10.1 MG/DL Total Bilirubin 0.9 0.1-1.0 MG/DL Aspartate Amino Transf (AST/SGOT) 22 5-34 U/L Alanine Aminotransferase (ALT/SGPT) 15 0-55 U/L Alkaline Phosphatase 71 40-136 U/L Total Protein 7.5 6.4-8.2 GM/DL Albumin 4.1 3.2-4.5 GM/DL Urine Color YELLOW Urine Clarity SL CLOUDY Urine pH 6.0 5-9 Urine Specific [place] 1.025 H 1.016-1.022 Urine Protein NEGATIVE NEGATIVE Urine Glucose (UA) NEGATIVE NEGATIVE Urine Ketones NEGATIVE NEGATIVE Urine Nitrite NEGATIVE NEGATIVE Urine Bilirubin NEGATIVE NEGATIVE Urine Urobilinogen 2.0 < = 1.0 MG/DL Urine Leukocyte Esterase TRACE H NEGATIVE Urine RBC (Auto) NEGATIVE NEGATIVE Urine RBC NONE /HPF Urine WBC 5-10 H /HPF Urine Squamous Epithelial Cells 0-2 /HPF Urine Crystals NONE /LPF Urine Bacteria FEW H /HPF Urine Casts NONE /LPF Urine Mucus NEGATIVE /LPF Urine Culture Indicated CULTURE PENDING My Orders Orders - MOER TIRADO MD Cbc With Automated Diff (12/04/21 15:58) Comprehensive Metabolic Panel (12/04/21 15:58) Blood Culture (12/04/21 15:58) Urinalysis (12/04/21 15:58) Urine Culture (12/04/21 15:58) Protime With Inr (12/04/21 15:58) Partial Thromboplastin Time (12/04/21 15:58) Chest 1 View, Ap/Pa Only (12/04/21 15:58) Ed Iv/Invasive Line Start (12/04/21 15:58) Ed Iv/Invasive Line Start (12/04/21 15:58) Vital Signs Adult Sepsis Patie Q15M (12/04/21 15:58) O2 (12/04/21 15:58) Remove Rings In Anticipation O (12/04/21 15:58) Lactic Acid Analyzer (12/04/21 15:58) Vancomycin Injection (Vancomycin Injecti (12/04/21 16:15) Ceftriaxone (Rocephin) (12/04/21 16:15) Morphine Injection (Morphine Injection (12/04/21 16:04) Ondansetron Injection (Zofran Injectio (12/04/21 16:15) Hydromorphone Injection (Dilaudid Inject (12/04/21 18:15) Medications Given in ED Vital Signs/I&O 12/04/21 12/04/21 15:07 18:26 Temp 37.0 Pulse 75 67 Resp 16 22 B/P (MAP) 149/81 (103) 121/71 Pulse Ox 95 98 12/05/21 00:00 Intake Total 300 ml Balance 300 ml Blood Pressure Mean: 103 Progress Progress Note #1: Time: 16:29 Progress Note I have called [facility] in [facility] as well as Marisa in [place] and [place] both hospitals are at capacity. I talked to the patient about her preferences for transfer, she would like me to try . Before calling this facility I will wait for laboratory studies Progress Note #2: Time: 18:06 Progress Note Case was discussed with Dr. Johnson on-call at our facility for orthopedics. Dr. Johnson declines care of this patient stating he typically send these patients to a hand surgeon because these infections can be "pretty involved". 1742 : I called and spoke with Dr. Sheppard at and he kindly accepts the patient at this time for further management. I have given the patient all of this information. She will have detailed instructions on where to go and what to do when she gets to . She is requesting more pain medications at this time. Labs have been reviewed and are all within normal limits. She has gotten 2 g of Rocephin and 1 g of vancomycin. Blood cultures were obtained at this visit. Diagnostic Imaging Diagonstic Imaging: Xray Comments [facility], [place] NAME: LIBIA PATTERSON [facility] REC#: [id number] PT STATUS: REG ER : 1960 PHYSICIAN: MORE TIRADO MD ADMIT DATE: 12/04/21/ER Draft Date of Exam:12/04/21 CHEST 1 VIEW, AP/PA ONLY INDICATION: Sepsis. EXAMINATION: Chest, 12/04/2021. COMPARISON: 07/26/2014. FINDINGS: The cardiomediastinal silhouette is unremarkable. The pulmonary vasculature is within normal limits. The lungs and pleural spaces are clear. IMPRESSION: No evidence of an acute cardiopulmonary process. Dictated on workstation # [id number] Dict: 12/04/21 1708 Trans: 12/04/21 1710 [facility] [id number] Interpreted by: LIMA BERRY MD Electronically signed by: Departure Impression Primary Impression: Flexor tenosynovitis of finger Additional Impression: Cellulitis Qualified Codes: L03.011 - Cellulitis of right finger Disposition: XF SHT-TRM HOSP Condition: Stable Transfer Transfer Reason: Exceeds level of care Time Spoke to Accepting Phy: 17:41 Transfer Progress Notes Discussed with Dr Sheppard Transfer Time: 18:30 Transfer Facility: Method of Transfer: Private Vehicle Departure-Patient Inst. Referrals: LIVIA IGLESIAS DO (PCP/Family) Primary Care Physician Add. Discharge Instructions: You will go to the main building, "[facility]". Second floor to "[facility]" and then to waiting room #2 across from main "pre-post" You will call [phone]; either Carole or Harmony will answer and when you let them know you are there, they will come and get you. Do not eat or drink anything on the way to the Hospital. MORE TIRADO MD Dec 04, 2021 15:53
[2021-12-04] MEDS ORDERED: morphine INJ 10 MG/ML 1ML (SYR OR VIAL) IVP STA (16:04)
[2021-12-04 16:08] LABS: EOSINOPHILS # (AUTO) 0.1 10^3/uL (0.0-0.3)
[2021-12-04 16:10] LABS: BASOPHILS % (AUTO) 1 % (0-10); EOSINOPHILS % (AUTO) 3 % (0-10); HEMATOCRIT 39 % (35-52); HEMOGLOBIN 12.5 g/dL (11.5-16.0); LYMPHOCYTES # (AUTO) 0.5 10^3/uL (1.0-4.0); LYMPHOCYTES % (AUTO) 12 % (12-44); MEAN CORPUSCULAR HEMOGLOBIN 29 pg (25-34); MEAN CORPUSCULAR HGB CONC 32 g/dL (32-36); MEAN CORPUSCULAR VOLUME 89 fL (80-99); MEAN PLATELET VOLUME 11.6 fL (9.0-12.2); MONOCYTES # (AUTO) 0.5 10^3/uL (0.0-1.0); MONOCYTES % (AUTO) 11 % (0-12); NEUTROPHILS # (AUTO) 3.4 10^3/uL (1.8-7.8); NEUTROPHILS % (AUTO) 73 % (42-75); PLATELET COUNT 93 10^3/uL (130-400); WHITE BLOOD COUNT 4.6 10^3/uL (4.3-11.0)
[2021-12-04 16:14] LABS: ALBUMIN 4.1 GM/DL (3.2-4.5); POTASSIUM 3.7 MMOL/L (3.6-5.0)
[2021-12-04 16:15] LABS: CALCIUM 9.2 MG/DL (8.5-10.1)
[2021-12-04] MEDS ORDERED: ONDANSETRON 4 MG/2 ML (SDV) Z0FRAN IVP ONE (16:15)
[2021-12-04] MEDS ORDERED: cefTRIAXone 2,000 MG in NS (IVPB) 50 ML IV ONE (16:15)
[2021-12-04] MEDS ORDERED: VANCOMYCIN INJECTION 1,000 MG in NS (IVPB) 250 ML IV ONE (16:15)
[2021-12-04 16:16] LABS: TOTAL PROTEIN 7.5 GM/DL (6.4-8.2)
[2021-12-04 16:18] LABS: BILIRUBIN,TOTAL 0.9 MG/DL (0.1-1.0)
[2021-12-04 16:20] LABS: CREATININE SERUM 0.78 MG/DL (0.60-1.30)
[2021-12-04 16:27] LABS: INR 1.1 (0.8-1.4); PROTHROMBIN TIME PATIENT 14.6 SEC (12.2-14.7)
[2021-12-04 16:28] LABS: BILIRUBIN,URINE NEGATIVE (NEGATIVE); CLARITY,URINE SL CLOUDY; COLOR,URINE YELLOW; GLUCOSE, URINE (UA) NEGATIVE (NEGATIVE); KETONES,URINE NEGATIVE (NEGATIVE); LEUKOCYTE ESTERASE ,URINE TRACE (NEGATIVE); NITRITE,URINE NEGATIVE (NEGATIVE); PROTEIN,URINE NEGATIVE (NEGATIVE)
[2021-12-04 16:36] LABS: BACTERIA,URINE FEW /HPF; SQUAMOUS EPITHELIAL CELL,UR 0-2 /HPF
--- NOTE | 2021-12-04 17:11 | Diagnostic Imaging Report ---
INDICATION: Sepsis. EXAMINATION: Chest, 12/04/2021. COMPARISON: 07/26/2014. FINDINGS: The cardiomediastinal silhouette is unremarkable. The pulmonary vasculature is within normal limits. The lungs and pleural spaces are clear. IMPRESSION: No evidence of an acute cardiopulmonary process. Dictated by: Dictated on workstation # [id number]
[2021-12-04] MEDS ORDERED: HYDROmorphone 2 MG/ML VIAL (DILAUDID) IV ONE (18:15)
[2021-12-04 18:26] VITALS: BP 121/71
== END 2021-12-04 18:26 | disposition short-term general hospital (02) ==
LOC: EDUNIT# 15:00 → ER 15:03
DX: M65.841 Other synovitis and tenosynovitis, right hand (principal); L03.011 Cellulitis of right finger; F17.290 Nicotine dependence, other tobacco product, uncomplicated
CPT/HCPCS: 36415; 71045; 80053; 81000; 83605; 85025; 85610; 85730; 87040; 87077; 87088